=== PATIENT | female | born 1950 ===

== ENCOUNTER 2017-03-05 17:47 | Inpatient (IN) | payer MEDICARE, MEDICAID ==
[2017-03-05] MEDS ORDERED: Sodium Chloride 0.9% 500 ML IV ONE (18:38)
[2017-03-05] MEDS ORDERED: Alum-Mag Hydrox-Simethicone Susp (30 mL) PO STA (18:41)
[2017-03-05] MEDS ORDERED: Aluminum Hydroxide/Magnesium Hydroxide Susp (30 mL) ONE (18:48)
[2017-03-05] MEDS ORDERED: Sodium Chloride 0.9% 1,000 ML ONE (18:48)
[2017-03-05 18:55] LABS: BASO % 0.3 % (0.0-2.0); EOS # 0.1 K/uL (0.0-0.7); HEMATOCRIT 31.9 % (34.0-47.0); LYMPH # 1.4 K/uL (1.0-4.3); LYMPH % 15.7 % (20.0-40.0); MEAN CELL VOLUME 89.1 fL (81.0-99.0); MEAN CORPUSCULAR HEMOGLOBIN 31.2 pg (27.0-31.0); MEAN PLATELET VOLUME 7.5 fL (7.2-11.7); MONO # 0.5 K/uL (0.0-0.8); RED CELL DISTRIBUTION WIDTH 13.6 % (11.5-14.5); WHITE BLOOD COUNT 9.1 K/uL (4.8-10.8)
[2017-03-05 19:00] LABS: CHLORIDE 77 mmol/L (98-107); POTASSIUM 4.3 mmol/L (3.6-5.2)
[2017-03-05 19:02] LABS: BILIRUBIN,TOTAL 0.9 mg/dL (0.2-1.3); GFR AFRICAN-AMERICAN > 60
[2017-03-05 19:03] LABS: ALB/GLOB RATIO 1.3 (1.0-2.1); ALKALINE PHOSPHATASE 93 U/L (38-126); ALT/SGPT 29 U/L (9-52); AST/SGOT 21 U/L (14-36); BLOOD UREA NITROGEN 11 mg/dL (7-17); CALCIUM 8.7 mg/dl (8.6-10.4); CARBON DIOXIDE 24 mmol/L (22-30); GLUCOSE,RANDOM 165 mg/dL (65-105); INR 0.9; TOTAL PROTEIN 7.9 g/dL (6.3-8.3)
[2017-03-05 19:05] LABS: SODIUM 111 mmol/L (132-148)
--- NOTE | 2017-03-05 21:09 | C.PDOC ---
Time Seen by Provider: 03/05/17 18:29 Chief Complaint (Nursing): Abdominal Pain Past Medical History Vital Signs: Last Vital Signs Temp 97.9 F 03/05/17 17:55 Pulse 68 03/05/17 17:55 Resp 22 03/05/17 17:55 BP 157/93 H 03/05/17 17:55 Pulse Ox 100 03/05/17 17:55 - Medical History PMH: HTN - Social History Hx Alcohol Use: No Hx Substance Use: No ED Course And Treatment - Laboratory Results Result Diagrams: 03/05/17 18:47 03/05/17 18:47 O2 Sat by Pulse Oximetry: 100 Disposition - Disposition
--- NOTE | 2017-03-05 22:11 | CT ---
EXAM: CT Head Without Intravenous Contrast EXAM DATE/TIME: 03/05/2017 6:40 PM CLINICAL HISTORY: 66 years old, female; Pain; Headache; Headache not specified TECHNIQUE: Axial computed tomography images of the head/brain without intravenous contrast. All CT scans at this facility use one or more dose reduction techniques, viz.: automated exposure control; ma/kV adjustment per patient size (including targeted exams where dose is matched to indication; i.e. head); or iterative reconstruction technique. COMPARISON: There are no prior studies for comparison. FINDINGS: Brain: Ventricles are normal in size and configuration. There is no midline shift. There is prominence of sulci and gyri. The There are small calcifications in the basal ganglia. There is minimal decreased attenuation in periventricular white matter. There are no intra-axial or extra-axial mass lesions or areas of hemorrhage. There are no abnormal fluid collections. Avalos-white differentiation is maintained. Ventricles: See above. Bones: Cranial vault is intact. Soft tissues: unremarkable Sinuses: There is no acute sinusitis. Ears and mastoids: Middle ears and mastoids are unremarkable Orbits: Orbital contents are unremarkable. IMPRESSION: No acute intracranial abnormality; mild atrophy
--- NOTE | 2017-03-05 22:16 | C.PDOC ---
Time Seen by Provider: 03/05/17 18:29 Chief Complaint (Nursing): Headache History Per: Patient, Family Onset/Duration Of Symptoms: Days (about 2 weeks) Current Symptoms Are (Timing): Still Present Severity: Moderate Quality: "Pain" Associated Symptoms: Nausea, Other Additional History Per: Prior Records Past Medical History Reviewed: Historical Data, Nursing Documentation, Vital Signs Vital Signs: Last Vital Signs Temp 97.9 F 03/05/17 17:55 Pulse 68 03/05/17 17:55 Resp 22 03/05/17 17:55 BP 157/93 H 03/05/17 17:55 Pulse Ox 100 03/05/17 17:55 - Medical History PMH: Diabetes, HTN, Hypothyroidism Family History: States: Unknown Family Hx - Social History Hx Alcohol Use: No Hx Substance Use: No Review Of Systems Except As Marked, All Systems Reviewed And Found Negative. Constitutional: Positive for: Weakness, Malaise. Negative for: Fever Cardiovascular: Positive for: Light Headedness. Negative for: Chest Pain Respiratory: Negative for: Cough, Shortness of Breath Gastrointestinal: Positive for: Nausea, Other (burping). Negative for: Vomiting , Abdominal Pain Musculoskeletal: Negative for: Neck Pain, Back Pain Skin: Negative for: Rash Neurological: Positive for: Headache. Negative for: Weakness, Numbness, Seizures Physical Exam - Physical Exam Appears: No Acute Distress Skin: Normal Color, Warm, Dry, No Rash Head: Atraumatic, Normacephalic Eye(s): bilateral: PERRL, EOMI Neck: Normal ROM, Supple Cardiovascular: Rhythm Regular Respiratory: Normal Breath Sounds, No Accessory Muscle Use Gastrointestinal/Abdominal: Soft, No Tenderness, No Distention Back: No CVA Tenderness Extremity: Normal ROM Neurological/Psych: Oriented x3, Normal Motor, Normal Sensation ED Course And Treatment - Laboratory Results Result Diagrams: 03/05/17 18:47 03/05/17 18:47 Lab Interpretation: Abnormal Interpretation Of Abnormal: Severe Hyponatremia ECG: Interpreted By Me, Viewed By Me ECG Rhythm: Sinus Rhythm, Nonspecific Changes Rate From EC O2 Sat by Pulse Oximetry: 100 Pulse Ox Interpretation: Normal - Radiology CXR: Interpreted by Me, Viewed By Me CXR Interpretation: Yes: No Acute Disease - CT Scan/US CT head Other Rad Studies (CT/US): Read By Radiologist, Radiology Report Reviewed CT/US Interpretation: IMPRESSION: No acute intracranial abnormality; mild atrophy - Physician Consult Information Physician Contacted: Evan Turpin (ICU) Outcome Of Conversation: He accepted pt to ICU, but wants me to hold off on starting hypertonic saline for now. Progress - Interventions Interventions:: Observation, Intravenous fluid - Medications Administered Oral: Antacid Intravenous: Antiemetic, H-2 mihaela - Data Reviewed Data Reviewed: Lab, Diagnostic imaging, EKG, Old records - Patient Status Patient status: Partially improved - Continuity of Care Discussed patient case with:: Patient, Family-HIPPA compliant, ED Nurse, Covering for PMD Discussed pt. case with professional employer consultant/specialty: Pulmonary/Crit. Care - Patient Plan Patient Plan: Admission, ICU Disposition Discussed With DrBecky: Elza Kapoor Comment: He accepted pt on his service. He wants pt to be admitted to ICU and started on hypertonic saline. Doctor Will See Patient In The: Hospital Counseled Patient/Family Regarding: Studies Performed, Diagnosis - Disposition Disposition: HOSPITALIZED Disposition Time: 22:19 Condition: GUARDED - Clinical Impression Clinical Impression: Hyponatremia, Headache, Belching symptom
[2017-03-05] MEDS ORDERED: Iohexol 240 (50 ml) ONE (22:40)
[2017-03-05 22:50] LABS: RBC URINE < 1 /hpf (0-3); URINE BILIRUBIN NEGATIVE (NEGATIVE); URINE BLOOD NEGATIVE (NEGATIVE); URINE COLOR Straw (YELLOW); URINE GLUCOSE (UA) NORMAL (Normal); URINE KETONE NEGATIVE (NEGATIVE); URINE LEUKOCYTE ESTERASE NEG Leu/uL (Negative); URINE PROTEIN 1+ mg/dL (NEGATIVE); URINE UROBILINOGEN NORMAL mg/dL (0.2-1.0); WBC URINE < 1 /hpf (0-5)
[2017-03-05] MEDS ORDERED: Iohexol 240 (50 ml) PO ONE (23:22)
[2017-03-05] MEDS ORDERED: Iodixanol 320 MG/ML 100 ML BOTTLE IV ONE (23:27)
[2017-03-06 00:05] LABS: FREE T4 1.15 ng/dL (0.78-2.19)
[2017-03-06 00:19] LABS: THYROID STIMULATING HORMONE 7.36 mIU/L (0.46-4.68)
--- NOTE | 2017-03-06 01:18 | CT ---
EXAM: CT Chest With Intravenous Contrast CLINICAL HISTORY: 66 years old, female; Pain; Abdominal pain; Chest pain; Additional info: Constant dyspepsia TECHNIQUE: Axial computed tomography images of the chest with intravenous contrast. All CT scans at this facility use one or more dose reduction techniques, viz.: automated exposure control; ma/kV adjustment per patient size (including targeted exams where dose is matched to indication; i.e. head); or iterative reconstruction technique. Coronal and sagittal reformatted images were created and reviewed. CONTRAST: 100 mL of [id number] administered intravenously. COMPARISON: No priors FINDINGS: Artifacts: Motion artifact degrades image quality. Lungs and pleural spaces: Trachea and main bronchi are patent. Lungs are well-inflated. There is no focal consolidation. There is minimal apical pleural scarring bilaterally. There are no effusions. Heart and Vasculature: The heart is mildly enlarged. There is no aneurysm or dissection. There is perfusion of the 3 arch vessels. There is minimal atherosclerotic disease. Pulmonary vessels are unremarkable Mediastinum: The esophagus is partially distended with air. There is a small hiatal hernia. There are no pathologically enlarged mediastinal or hilar nodes. Thyroid: Thyroid is unremarkable Bones/joints: There are degenerative changes in the osseus structures. Soft tissues: unremarkable Upper abdomen: Refer to following report for abdominal findings IMPRESSION: Mild cardiomegaly, no acute disease in the chest EXAM: CT Abdomen and Pelvis With Intravenous Contrast EXAM DATE/TIME: 03/05/2017 9:58 PM CLINICAL HISTORY: 66 years old, female; Pain; Abdominal pain; Chest pain; Additional info: Constant dyspepsia TECHNIQUE: Axial computed tomography images of the abdomen and pelvis with intravenous contrast. All CT scans at this facility use one or more dose reduction techniques, viz.: automated exposure control; ma/kV adjustment per patient size (including targeted exams where dose is matched to indication; i.e. head); or iterative reconstruction technique. Coronal and sagittal reformatted images were created and reviewed. CONTRAST: 100 mL of [id number] administered intravenously. COMPARISON: There are no prior studies for comparison. FINDINGS: Lower thorax: Refer to prior report for chest findings. ABDOMEN: Liver: There is fatty infiltration of the liver. Gallbladder and bile ducts: unremarkable Pancreas: Pancreas is mildly atrophic. Spleen: unremarkable Adrenals: unremarkable Kidneys and ureters: There is a left lower pole renal cyst. Kidneys and ureters are otherwise unremarkable. Stomach and bowel: There is a hiatal hernia. Stomach is almost empty. Rotation is normal. There is no obstruction. Terminal ileum is unremarkable. Appendix is unremarkable.Colon is incompletely distended which limits evaluation. There is minimal diverticulosis Appendix: See stomach and bowel PELVIS: Bladder: unremarkable Reproductive: Uterus and adnexal structures are unremarkable. ABDOMEN and PELVIS: Intraperitoneal space: There is no free air or free fluid. Bones/joints: There is L5 spondylolysis with grade 1 spondylolisthesis. There is posterior L5-S1 disc space narrowing with disc bulging.There are degenerative changes in the osseus structures. Soft tissues: There is a small fat containing umbilical hernia. Vasculature: There are vascular calcifications.There are multiple phleboliths. Lymph nodes: There is no pathologic adenopathy. IMPRESSION: Hiatal hernia; no acute bowel abnormality; fatty liver, no acute solid visceral abnormality Additional findings as described above.
[2017-03-06] MEDS ORDERED: Sodium Chloride 0.9% 1,000 ML IV SCH (02:30)
[2017-03-06 03:18] LABS: CHLORIDE 87 mmol/L (98-107)
--- NOTE | 2017-03-06 03:18 | CP.PCM.CON ---
History of Present Illness - History of Present Illness History of Present Illness: 66 F with h/o DM, htn, hyperlipidimia, gout, hypothyroid came to the hospital for 1 wk history or burping, dyspepsia, intermittent vomiting. Patient saw pmd she was referred to ER w/u in ER showed hyponatremia of 111 and hence icu consult called. Patient is alert oriented x3 not confused, denied any falls. Patient's recent changes in meds losartan was stopped, unclear if it was combined with HCTZ will be confirmed from pmd. Urine OSM 199, sodium 32. PMH as above PSH denies Allergies NKDA Home meds noted need to confirm discontinued med contained HCTZ or nor Social denies smoking, alcohol, lives with family, visitor from [facility] in [place] about 6 months. Family history not contributory. Review of Systems - Review of Systems All systems: reviewed and no additional remarkable complaints except (HPI) Past Patient History - Past Medical History & Family History Past Medical History?: Yes - Past Social History Smoking Status: Never Smoked Alcohol: None Drugs: Denies Home Situation {Lives}: With Family - CARDIAC Hx Cardiac Disorders: Yes Hx Hypertension: Yes - PULMONARY Hx Respiratory Disorders: No - NEUROLOGICAL Hx Neurological Disorder: No - HEENT Hx HEENT Problems: No - RENAL Hx Chronic Kidney Disease: No - ENDOCRINE/METABOLIC Hx Endocrine Disorders: Yes Hx Hypothyroidism: Yes - HEMATOLOGICAL/ONCOLOGICAL Hx Blood Disorders: No - INTEGUMENTARY Hx Dermatological Problems: No - MUSCULOSKELETAL/RHEUMATOLOGICAL Hx Musculoskeletal Disorders: Yes Hx Falls: No Hx Gout: Yes - GASTROINTESTINAL Hx Gastrointestinal Disorders: No - GENITOURINARY/GYNECOLOGICAL Hx Genitourinary Disorders: No - PSYCHIATRIC Hx Psychophysiologic Disorder: No Hx Substance Use: No - SURGICAL HISTORY Hx Surgeries: No - ANESTHESIA Hx Anesthesia: No Meds Allergies/Adverse Reactions: Allergies Allergy/AdvReac Type Severity Reaction Status Date / Time No Known Allergies Allergy Verified 03/05/17 18:38 - Medications Medications: Current Medications Allopurinol (Zyloprim) 100 mg PO DAILY [facility] Alprazolam (Xanax) 0.25 mg PO HS [facility] Stop: 03/13/17 22:01 Carvedilol (Coreg) 25 mg PO BID [facility] Sodium Chloride (Sodium Chloride 0.9%) 1,000 mls @ 100 mls/hr IV .Q10H [facility] Last Admin: 03/06/17 02:48 Dose: 100 mls/hr Levothyroxine Sodium (Synthroid) 50 mcg PO DAILY@0630 [facility] Pneumococcal Polyvalent Vaccine (Pneumovax 23 Vaccine) 0.5 ml IM .ONCE ONE Stop: 03/08/17 10:01 Rosuvastatin Calcium (Crestor) 20 mg PO HS [facility] Sitagliptin Phosphate (Januvia) 100 mg PO DAILY [facility] Physical Exam - Additional Findings Additional findings: * HEENT DVAID * Neck supple * chest clear, no wheezing or rales * CVS Regular no gallop or rub * PA soft, nt bs present * Ext no edema * Skin normal turgor * [employer] awake oriented x3 no fnd. Results - Vital Signs Recent Vital Signs: Last Vital Signs Temp 97.8 F 03/06/17 02:00 Pulse 72 03/06/17 02:00 Resp 18 03/06/17 02:00 BP 125/81 03/06/17 02:00 Pulse Ox 100 03/06/17 02:00 - Labs Result Diagrams: 03/05/17 18:47 03/05/17 18:47 Labs: Laboratory Results - last 24 hr 03/05/17 03/05/17 03/05/17 18:47 18:47 18:47 WBC 9.1 RBC 3.58 L Hgb 11.2 Hct 31.9 L MCV 89.1 MCH 31.2 H MCHC 35.0 RDW 13.6 Plt Count 248 MPV 7.5 Neut % (Auto) 77.0 H Lymph % (Auto) 15.7 L Wilson % (Auto) 6.0 Eos % (Auto) 1.0 Baso % (Auto) 0.3 Neut # 7.0 Lymph # 1.4 Wilson # 0.5 Eos # 0.1 Baso # 0.0 PT 10.0 INR 0.9 APTT 29 Sodium 111 L* Potassium 4.3 Chloride 77 L Carbon Dioxide 24 Anion Gap 14 BUN 11 Creatinine 1.0 Est GFR ( Amer) > 60 Est GFR (Non-Af Amer) 55 Random Glucose 165 H Calcium 8.7 Total Bilirubin 0.9 AST 21 ALT 29 Alkaline Phosphatase 93 Troponin I < 0.0120 Total Protein 7.9 Albumin 4.4 Globulin 3.4 Albumin/Globulin Ratio 1.3 Lipase 328 H Free T4 TSH 3rd Generation Urine Color Urine Clarity Urine pH Ur Specific [place] Urine Protein Urine Glucose (UA) Urine Ketones Urine Blood Urine Nitrate Urine Bilirubin Urine Urobilinogen Ur Leukocyte Esterase Urine WBC (Auto) Urine RBC (Auto) Ur Squamous Epith Cells Urine Osmolality Ur Random Sodium 03/05/17 03/05/17 03/05/17 22:35 22:35 22:35 WBC RBC Hgb Hct MCV MCH MCHC RDW Plt Count MPV Neut % (Auto) Lymph % (Auto) Wilson % (Auto) Eos % (Auto) Baso % (Auto) Neut # Lymph # Wilson # Eos # Baso # PT INR APTT Sodium Potassium Chloride Carbon Dioxide Anion Gap BUN Creatinine Est GFR ( Amer) Est GFR (Non-Af Amer) Random Glucose Calcium Total Bilirubin AST ALT Alkaline Phosphatase Troponin I Total Protein Albumin Globulin Albumin/Globulin Ratio Lipase Free T4 1.15 TSH 3rd Generation 7.36 H Urine Color Straw Urine Clarity Clear Urine pH 6.0 Ur Specific [place] 1.006 Urine Protein 1+ H Urine Glucose (UA) Normal Urine Ketones Negative Urine Blood Negative Urine Nitrate Negative Urine Bilirubin Negative Urine Urobilinogen Normal Ur Leukocyte Esterase Neg Urine WBC (Auto) < 1 Urine RBC (Auto) < 1 Ur Squamous Epith Cells 1 Urine Osmolality 199 L Ur Random Sodium 32 Assessment & Plan - Assessment and Plan (Free Text) Assessment: * Euvolemic hyponatremia with low not lowest urine OSM suggesting of SIADH, DD of hypothyroid and possible being on HCTZ * H/o NIDDM * HTN * Hypothyroid tsh is 7 * Dyspepsia possibly from small hiatal hernia, gerd, air swallowing, anxiety, CT abd/pelvis negative for any obstruction * Plan: * To give fluid with OSM > urine OSM + prn lasix and monitor serum sodium, correction rate no more than 10-12 meq/day, here giving normal saline with osm of 300 urine osm of 199, will check this am osm * increase synthyroid * symptomatic treatment for burping, dyspepsia, counselled about swallowing air * GI/DVT prophylaxis * Observe short duration in ICU to see response from current treatment. * See orders for detail. *
[2017-03-06 03:19] LABS: POTASSIUM 4.1 mmol/L (3.6-5.2)
[2017-03-06 03:20] LABS: GFR AFRICAN-AMERICAN > 60
[2017-03-06 03:21] LABS: ALB/GLOB RATIO 1.2 (1.0-2.1); ALKALINE PHOSPHATASE 72 U/L (38-126); ALT/SGPT 27 U/L (9-52); AST/SGOT 22 U/L (14-36); BILIRUBIN,TOTAL 0.9 mg/dL (0.2-1.3); BLOOD UREA NITROGEN 9 mg/dL (7-17); CARBON DIOXIDE 22 mmol/L (22-30); GLUCOSE,RANDOM 90 mg/dL (65-105); TOTAL PROTEIN 7.1 g/dL (6.3-8.3)
[2017-03-06 03:22] LABS: CALCIUM 8.4 mg/dl (8.6-10.4)
[2017-03-06 03:32] LABS: SODIUM 120 mmol/L (132-148)
[2017-03-06] MEDS: Levothyroxine 75 MCG TAB PO SCH (05:32)
[2017-03-06] MEDS ORDERED: Levothyroxine 50 MCG TAB PO SCH (06:30)
--- NOTE | 2017-03-06 07:44 | RAD ---
PROCEDURE: CHEST RADIOGRAPH, 1 VIEW HISTORY: abd pain COMPARISON: None available. FINDINGS: LUNGS: Clear. PLEURA: No pneumothorax or pleural fluid seen. CARDIOVASCULAR: Technical magnification versus intrinsic enlargement cardiac silhouette. OSSEOUS STRUCTURES: No significant abnormalities. VISUALIZED UPPER ABDOMEN: Normal. OTHER FINDINGS: None. IMPRESSION: No acute pulmonary disease appreciated. Intrinsic mild cardiomegaly is difficult to differentiate from technical magnification. Clinically correlate.
[2017-03-06] MEDS ORDERED: Influenza Vaccine 60 mcg/0.5 mL SYR (4YR UP) IM ONE (11:48)
--- NOTE | 2017-03-06 11:56 | CARD ---
APPROVED REPORT EKG Measurement Heart [id number] <Conclusion> Normal sinus rhythm Cannot rule out Anterior infarct, age undetermined Abnormal ECG
[2017-03-06] MEDS: Tolvaptan 15 MG TAB PO SCH (16:59)
--- NOTE | 2017-03-06 23:41 | CP.PCM.HP ---
Past Patient History - Past Medical History & Family History Past Medical History?: Yes - Past Social History Smoking Status: Never Smoked Alcohol: None Drugs: Denies Home Situation {Lives}: With Family - CARDIAC Hx Cardiac Disorders: Yes Hx Hypertension: Yes - PULMONARY Hx Respiratory Disorders: No - NEUROLOGICAL Hx Neurological Disorder: No - HEENT Hx HEENT Problems: No - RENAL Hx Chronic Kidney Disease: No - ENDOCRINE/METABOLIC Hx Endocrine Disorders: Yes Hx Hypothyroidism: Yes - HEMATOLOGICAL/ONCOLOGICAL Hx Blood Disorders: No - INTEGUMENTARY Hx Dermatological Problems: No - MUSCULOSKELETAL/RHEUMATOLOGICAL Hx Musculoskeletal Disorders: Yes Hx Falls: No Hx Gout: Yes - GASTROINTESTINAL Hx Gastrointestinal Disorders: No - GENITOURINARY/GYNECOLOGICAL Hx Genitourinary Disorders: No - PSYCHIATRIC Hx Psychophysiologic Disorder: No Hx Substance Use: No - SURGICAL HISTORY Hx Surgeries: No - ANESTHESIA Hx Anesthesia: No Meds Allergies/Adverse Reactions: Allergies Allergy/AdvReac Type Severity Reaction Status Date / Time No Known Allergies Allergy Verified 03/05/17 18:38 Results - Vital Signs Recent Vital Signs: Last Vital Signs Temp 98.3 F 03/06/17 16:00 Pulse 60 03/06/17 16:00 Resp 20 03/06/17 16:00 BP 103/67 03/06/17 16:00 Pulse Ox 98 03/06/17 16:00 - Labs Result Diagrams: 03/05/17 18:47 03/06/17 02:22 Labs: Laboratory Results - last 24 hr 03/05/17 03/06/17 03/06/17 22:35 02:22 03:30 Sodium 120 L* Potassium 4.1 Chloride 87 L Carbon Dioxide 22 Anion Gap 15 BUN 9 Creatinine 0.9 Est GFR ( Amer) > 60 Est GFR (Non-Af Amer) > 60 POC Glucose (mg/dL) Random Glucose 90 Hemoglobin A1c Calcium 8.4 L Total Bilirubin 0.9 AST 22 ALT 27 Alkaline Phosphatase 72 Total Protein 7.1 Albumin 3.9 Globulin 3.3 Albumin/Globulin Ratio 1.2 Free T4 1.15 TSH 3rd Generation 7.36 H Cortisol AM Sample 4.6 Urine Osmolality 03/06/17 03/06/17 03/06/17 06:26 06:26 12:14 Sodium Potassium Chloride Carbon Dioxide Anion Gap BUN Creatinine Est GFR ( Amer) Est GFR (Non-Af Amer) POC Glucose (mg/dL) 208 H Random Glucose Hemoglobin A1c 7.3 H Calcium Total Bilirubin AST ALT Alkaline Phosphatase Total Protein Albumin Globulin Albumin/Globulin Ratio Free T4 TSH 3rd Generation Cortisol AM Sample Urine Osmolality 125 L 03/06/17 03/06/17 16:24 21:16 Sodium Potassium Chloride Carbon Dioxide Anion Gap BUN Creatinine Est GFR ( Amer) Est GFR (Non-Af Amer) POC Glucose (mg/dL) 166 H 182 H Random Glucose Hemoglobin A1c Calcium Total Bilirubin AST ALT Alkaline Phosphatase Total Protein Albumin Globulin Albumin/Globulin Ratio Free T4 TSH 3rd Generation Cortisol AM Sample Urine Osmolality
[2017-03-07] MEDS: Levothyroxine 75 MCG TAB PO SCH (05:50)
[2017-03-07 08:17] LABS: HEMATOCRIT 30.3 % (34.0-47.0); MEAN CORPUSCULAR HEMOGLOBIN 31.4 pg (27.0-31.0); MEAN CORPUSCULAR HGB CONC 34.5 g/dL (33.0-37.0); MEAN PLATELET VOLUME 7.6 fL (7.2-11.7); WHITE BLOOD COUNT 5.5 K/uL (4.8-10.8)
[2017-03-07 08:30] LABS: POTASSIUM 4.1 mmol/L (3.6-5.2)
[2017-03-07 08:33] LABS: ALB/GLOB RATIO 1.5 (1.0-2.1); BILIRUBIN,TOTAL 0.5 mg/dL (0.2-1.3); TOTAL PROTEIN 6.4 g/dL (6.3-8.3)
[2017-03-07 08:34] LABS: CALCIUM 8.8 mg/dl (8.6-10.4)
[2017-03-07] MEDS: Enoxaparin 40 mg Syringe SC SCH ×2 (09:26→09:28)
[2017-03-07] MEDS: Tolvaptan 15 MG TAB PO SCH (09:30)
--- NOTE | 2017-03-07 14:47 | CP.PCM.PN ---
Subjective - Date & Time of Evaluation Date of Evaluation: 03/07/17 Time of Evaluation: 08:00 - Subjective Subjective: clinically same Objective - Vital Signs/Intake and Output Vital Signs (last 24 hours): Temp Pulse Resp BP Pulse Ox 98.3 F 60 20 106/70 99 03/07/17 07:23 03/07/17 07:23 03/07/17 07:23 03/07/17 09:17 03/07/17 07:23 Intake and Output: 03/07/17 03/07/17 06:59 18:59 Intake Total 400 500 Balance 400 500 - Medications Medications: Current Medications Allopurinol (Zyloprim) 100 mg PO DAILY [facility] Last Admin: 03/07/17 09:18 Dose: 100 mg Alprazolam (Xanax) 0.25 mg PO [facility] Stop: 03/13/17 22:01 Last Admin: 03/06/17 21:38 Dose: 0.25 mg Carvedilol (Coreg) 25 mg PO BID [facility] Last Admin: 03/07/17 09:17 Dose: Not Given Enoxaparin Sodium (Lovenox) 40 mg SC DAILY [facility] Last Admin: 03/07/17 09:28 Dose: 40 mg Levothyroxine Sodium (Synthroid) 75 mcg PO DAILY@0630 [facility] Last Admin: 03/07/17 05:50 Dose: 75 mcg Ondansetron HCl (Zofran Inj) 4 mg IVP Q6H PRN PRN Reason: Nausea/Vomiting Pneumococcal Polyvalent Vaccine (Pneumovax 23 Vaccine) 0.5 ml IM .ONCE ONE Stop: 03/08/17 10:01 Rosuvastatin Calcium (Crestor) 20 mg PO [facility] Last Admin: 03/06/17 21:38 Dose: 20 mg Sitagliptin Phosphate (Januvia) 100 mg PO DAILY [facility] Last Admin: 03/07/17 09:18 Dose: 100 mg Tolvaptan (Samsca) 15 mg PO DAILY [facility] Stop: 03/08/17 16:02 Last Admin: 03/07/17 09:30 Dose: 15 mg - Labs Labs: 03/07/17 07:55 03/07/17 07:55 PT 10.0 SECONDS (9.7-12.2) 03/05/17 18:47 INR 0.9 03/05/17 18:47 APTT 29 SECONDS (21-34) 03/05/17 18:47 Assessment and Plan - Assessment and Plan (Free Text) Plan: Continue same Hold lisinopril because of the cough Continue Coreg Losartan hydrochlorothiazide will discontinue hydrochlorothiazide Patient was drinking too much of water patient advised to stop drinking water patient understood and patient will follow Sodium has gone up to 125 Continue Samsca
--- NOTE | 2017-03-07 17:22 | CP.PCM.PN ---
Subjective - Date & Time of Evaluation Date of Evaluation: 03/07/17 Time of Evaluation: 07:40 - Subjective Subjective: clinically same Objective - Vital Signs/Intake and Output Vital Signs (last 24 hours): Temp Pulse Resp BP Pulse Ox 98.3 F 60 20 106/70 99 03/07/17 07:23 03/07/17 07:23 03/07/17 07:23 03/07/17 09:17 03/07/17 07:23 Intake and Output: 03/07/17 03/07/17 06:59 18:59 Intake Total 400 500 Balance 400 500 - Medications Medications: Current Medications Allopurinol (Zyloprim) 100 mg PO DAILY [facility] Last Admin: 03/07/17 09:18 Dose: 100 mg Alprazolam (Xanax) 0.25 mg PO [facility] Stop: 03/13/17 22:01 Last Admin: 03/06/17 21:38 Dose: 0.25 mg Carvedilol (Coreg) 25 mg PO BID [facility] Last Admin: 03/07/17 09:17 Dose: Not Given Enoxaparin Sodium (Lovenox) 40 mg SC DAILY [facility] Last Admin: 03/07/17 09:28 Dose: 40 mg Levothyroxine Sodium (Synthroid) 75 mcg PO DAILY@0630 [facility] Last Admin: 03/07/17 05:50 Dose: 75 mcg Ondansetron HCl (Zofran Inj) 4 mg IVP Q6H PRN PRN Reason: Nausea/Vomiting Pneumococcal Polyvalent Vaccine (Pneumovax 23 Vaccine) 0.5 ml IM .ONCE ONE Stop: 03/08/17 10:01 Rosuvastatin Calcium (Crestor) 20 mg PO [facility] Last Admin: 03/06/17 21:38 Dose: 20 mg Sitagliptin Phosphate (Januvia) 100 mg PO DAILY [facility] Last Admin: 03/07/17 09:18 Dose: 100 mg Tolvaptan (Samsca) 15 mg PO DAILY [facility] Stop: 03/08/17 16:02 Last Admin: 03/07/17 09:30 Dose: 15 mg - Labs Labs: 03/07/17 07:55 03/07/17 07:55 PT 10.0 SECONDS (9.7-12.2) 03/05/17 18:47 INR 0.9 03/05/17 18:47 APTT 29 SECONDS (21-34) 03/05/17 18:47
[2017-03-08] MEDS: Levothyroxine 75 MCG TAB PO SCH (05:55)
[2017-03-08 06:42] VITALS: RESP 20
[2017-03-08 07:47] VITALS: PULSE 61; TEMP 97.2; O2SAT 97
[2017-03-08 07:59] LABS: HEMATOCRIT 29.9 % (34.0-47.0); MEAN CORPUSCULAR HEMOGLOBIN 31.7 pg (27.0-31.0); MEAN PLATELET VOLUME 7.3 fL (7.2-11.7); RED CELL DISTRIBUTION WIDTH 13.9 % (11.5-14.5); WHITE BLOOD COUNT 5.4 K/uL (4.8-10.8)
[2017-03-08 08:04] LABS: MEAN CELL VOLUME 93.4 fL (81.0-99.0)
[2017-03-08 08:30] LABS: CHLORIDE 97 mmol/L (98-107); POTASSIUM 4.5 mmol/L (3.6-5.2); SODIUM 129 mmol/L (132-148)
[2017-03-08 08:32] LABS: BILIRUBIN,TOTAL 0.6 mg/dL (0.2-1.3); CARBON DIOXIDE 22 mmol/L (22-30); GFR AFRICAN-AMERICAN > 60
[2017-03-08 08:33] LABS: ALB/GLOB RATIO 1.5 (1.0-2.1); ALKALINE PHOSPHATASE 77 U/L (38-126); AST/SGOT 20 U/L (14-36); BLOOD UREA NITROGEN 11 mg/dL (7-17); GLUCOSE,RANDOM 124 mg/dL (65-105); TOTAL PROTEIN 6.3 g/dL (6.3-8.3)
[2017-03-08 08:34] LABS: ALT/SGPT 35 U/L (9-52); CALCIUM 8.8 mg/dl (8.6-10.4)
[2017-03-08] MEDS ORDERED: Influenza Vaccine 60 mcg/0.5 mL SYR (4YR UP) IM ONE (10:00)
[2017-03-08] MEDS ORDERED: Pneumococcal 23-Valent Vaccine IM ONE (10:00)
[2017-03-08] MEDS: Enoxaparin 40 mg Syringe SC SCH (10:38)
[2017-03-08] MEDS: Tolvaptan 15 MG TAB PO SCH (10:39)
[2017-03-08 10:55] VITALS: BP 117/74
== END 2017-03-08 16:40 | disposition home or self-care (01) | DRG 641 ==
LOC: C.ER 17:47 → C.9I 22:53 → C.9E 22:53 → C.3T 03-06 14:08
PROVIDERS: ADMIT Internal Medicine Nephrology; ATTEND Internal Medicine Nephrology
DX: E87.1 Hypo-osmolality and hyponatremia (principal); I10 Essential (primary) hypertension; E03.9 Hypothyroidism, unspecified; E11.9 Type 2 diabetes mellitus without complications; M10.9 Gout, unspecified